=== PATIENT | female | born 1960 ===

== ENCOUNTER 2018-05-14 18:32 | Emergency (ER) | payer OTHER ==
[2018-05-14 18:49] VITALS: BP 133/91; PULSE 74; RESP 16; TEMP 98.2; O2SAT 99
--- NOTE | 2018-05-14 19:33 | ED PDOC ---
HPI: Female Pain Time Seen by Provider: 05/14/18 19:02 Chief Complaint (Nursing): Abdominal Pain Chief Complaint (Provider): Dysuria History Per: Patient History/Exam Limitations: no limitations Onset/Duration Of Symptoms: Days (3 weeks) Additional Complaint(s): Pt. with dysuria and frequent urination. Seen by pcp and given macrobid which pt. finished. Here as symptoms still persist. Has pain suprapubic going to lower back. No numbness, tingles, weakness, incontinence, constipation. No fever. Has nausea. No vomit or diarrhea. Also has calf cramps for 5 days. No long distance travel or dyspnea/chest pain. On methotrexate shots 1x a week. Past Medical History Reviewed: Nursing Documentation, Vital Signs Vital Signs: Last Vital Signs Temp 98.2 F 05/14/18 18:46 Pulse 74 05/14/18 18:46 Resp 16 05/14/18 18:46 BP 133/91 H 05/14/18 18:46 Pulse Ox 99 05/14/18 18:46 - Medical History PMH: Rheumatoid Arthritis Denies: Chronic Kidney Disease - Surgical History Surgical History: - Family History Family History: States: Unknown Family Hx - Living Arrangements Living Arrangements: With Family - Home Medications Home Medications: Ambulatory Orders Medication Instructions Recorded Folic Acid 1 tab PO DAILY 10/26/15 Ibuprofen [Motrin Tab] 400 mg PO QOTHERDAY 10/26/15 Methotrexate 6 tab PO QWK 10/26/15 Cephalexin [cephalexin] 500 mg PO Q12 5 Days cap 05/14/18 - Allergies Allergies/Adverse Reactions: Allergies Allergy/AdvReac Type Severity Reaction Status Date / Time No Known Allergies Allergy Verified 05/14/18 18:42 Review of Systems ROS Statement: Except As Marked, All Systems Reviewed And Found Negative Gastrointestinal: Positive for: Abdominal Pain Genitourinary Female: Positive for: Dysuria, Frequency Musculoskeletal: Positive for: Back Pain, Leg Pain Physical Exam - Reviewed Nursing Documentation Reviewed: Yes Vital Signs Reviewed: Yes - Physical Exam Appears: Positive for: Non-toxic, No Acute Distress Head Exam: Positive for: ATRAUMATIC, NORMAL INSPECTION, NORMOCEPHALIC Skin: Positive for: Normal Color, Warm, DRY Eye Exam: Positive for: EOMI, Normal appearance, PERRL ENT: Positive for: Normal ENT Inspection Neck: Positive for: Normal, Painless ROM, Supple Cardiovascular/Chest: Positive for: Regular Rate, Rhythm. Negative for: Edema Respiratory: Positive for: CNT, Normal Breath Sounds Gastrointestinal/Abdominal: Positive for: Soft, Tenderness (suprapubic mild; no left or right lower quadrant tenderness) Back: Positive for: Normal Inspection. Negative for: L CVA Tenderness, R CVA Te nderness Extremity: Positive for: Normal ROM. Negative for: Tenderness, Pedal Edema Neurologic/Psych: Positive for: Alert, Oriented - ECG O2 Sat by Pulse Oximetry: 99 Pulse Ox Interpretation: Normal - Progress ED Course And Treament: 1922: Stable. Will put on cephalexin for uti. Pt. already tried macrobid. No cipro as pt. on methotrexate and has chance of interaction. Urine cx sent. 2245: Stable. Alert. Fu with pcp. AAOx3. No dvt. Disposition - Clinical Impression Clinical Impression: UTI (urinary tract infection), Muscle cramps - Patient ED Disposition Is Patient to be Admitted: No Counseled Patient/Family Regarding: Studies Performed, Diagnosis, Need For Followup, Rx Given - Disposition Referrals: [facility] [place] [facility] [Outside] - 05/16/18 Disposition: Routine/Home Disposition Time: 22:47 Condition: STABLE Additional Instructions: Return if not better in 3 days. Prescriptions: Cephalexin [cephalexin] 500 mg PO Q12 5 Days cap Instructions: Urinary Tract Infections in Adults, Nocturnal (Nighttime) Leg Cramps Print Language: CZECH
[2018-05-14 20:37] LABS: URINE BACTERIA RARE (<OCC); URINE BILIRUBIN NEGATIVE (NEGATIVE); URINE BLOOD NEGATIVE (NEGATIVE); URINE CLARITY CLEAR (Clear); URINE COLOR COLORLESS (YELLOW); URINE GLUCOSE (UA) NEG (Normal); URINE LEUKOCYTE ESTERASE TRACE Leu/uL (Negative); URINE PROTEIN NEGATIVE (NEGATIVE); URINE UROBILINOGEN 0.2-1.0 mg/dL (0.2-1.0)
--- NOTE | 2018-05-15 10:04 | US ---
Date of service: 05/14/2018 PROCEDURE: Bilateral lower extremity venous duplex Doppler. HISTORY: r/o dvt COMPARISON: None available. TECHNIQUE: Bilateral common femoral, superficial femoral, popliteal and posterior tibial veins were evaluated. Flow was assessed with color Doppler, compressibility, assessment of phasic flow and augmentation response. FINDINGS: COMMON FEMORAL VEIN: Right CFV: Unremarkable. Left CFV: Unremarkable. SUPERFICIAL FEMORAL VEIN: Right SFV: Unremarkable. Left SFV: Unremarkable. POPLITEAL VEIN: Right Popliteal: Unremarkable. Left Popliteal: Unremarkable. POSTERIOR TIBIAL VEIN: Right PTV: Unremarkable. Left PTV: Unremarkable. OTHER FINDINGS: None. IMPRESSION: No evidence of deep venous thrombosis.
== END 2018-05-14 23:00 | disposition home or self-care (01) ==
LOC: H.ER 18:32
DX: N39.0 Urinary tract infection, site not specified (principal); M06.9 Rheumatoid arthritis, unspecified; R25.2 Cramp and spasm